=== PATIENT | male | born 1960 | race Caucasian/White ===

== ENCOUNTER 2016-09-17 23:21 | Emergency (ER) | payer MEDICAID ==
[2016-09-17] MEDS ORDERED: oxyCOD/ACETAMIN 5 MG/325 MG TABLET PO STA (23:33)
[2016-09-17] MEDS ORDERED: oxyCOD/ACETAMIN 5 MG/325 MG TABLET PO ONE (23:36)
[2016-09-17] MEDS ORDERED: LIDOCAINE 1%-EPI 1:100000 20 ML MDV ONE (23:58)
== END 2016-09-18 01:48 | disposition home or self-care (01) ==
DX: S62.320A Displaced fracture of shaft of second metacarpal bone, right hand, initial encounter for closed fracture (principal); S06.9X9A Unspecified intracranial injury with loss of consciousness of unspecified duration, initial encounter; S01.81XA Laceration without foreign body of other part of head, initial encounter; S00.83XA Contusion of other part of head, initial encounter; M54.2 Cervicalgia; V48.0XXA Car driver injured in noncollision transport accident in nontraffic accident, initial encounter; Y92.410 Unspecified street and highway as the place of occurrence of the external cause; M06.9 Rheumatoid arthritis, unspecified; Z87.891 Personal history of nicotine dependence
CPT/HCPCS: 12011; 29125; 70450; 72125; 73130; 99283; 99284; A9270

== ENCOUNTER 2016-10-07 10:11 | Outpatient (CLI) | payer MEDICAID | END 2016-10-07 10:12 | disposition home or self-care (01) | DX: S62.320D Displaced fracture of shaft of second metacarpal bone, right hand, subsequent encounter for fracture with routine healing (principal) ==

== ENCOUNTER 2017-01-06 14:03 | Outpatient (CLI) | payer MEDICAID | END 2017-01-06 14:04 | disposition critical access hospital (66) | LOC: EMS 14:03 | PROVIDERS: ATTEND Surgery | DX: F41.9 Anxiety disorder, unspecified (principal) | CPT/HCPCS: A0425; A0429 ==

== ENCOUNTER 2017-01-06 14:45 | Emergency (ER) | payer MEDICAID ==
[2017-01-06 14:49] VITALS: BP 160/94
--- NOTE | 2017-01-06 14:53 | ED Physician Documentation ---
PD HPI DYSPNEA - Stated complaint Stated Complaint: SOA - Chief complaint Chief Complaint: Resp - History obtained from History obtained from: Patient, EMS - History of Present Illness Timing - onset: Enter time (1030), Today Timing - onset during: Rest Timing - duration: Hours Timing - details: Gradual onset, Still present Inciting event(s): Other (56 y/o male with a replapse admits to doing meth last night and this morning he is feeling short of breath and anxious.l) Improved by: Rest Similar symptoms before: Has not had sx before Recently seen: Not recently seen - Additional information Additional information: 56 y/o male with a history of substance abuse has been in remission for 16 years and he has started back up again about 6 months ago and early this morning he became anxious and has resolved to stop. He indicates he was wanting more and resisted it and has flushed his supply and wants to move on. He felt he was going to this morning and he called 911. Review of Systems Constitutional: denies: Fever Eyes: denies: Loss of vision Ears: denies: Ear pain Nose: denies: Congestion Throat: denies: Sore throat Cardiac: denies: Chest pain / pressure, Palpitations Respiratory: reports: Dyspnea. denies: Cough, Wheezing GI: denies: Abdominal Pain, Abdominal Swelling, Nausea, Vomiting : denies: Frequency Skin: denies: Rash Musculoskeletal: denies: Neck pain, Back pain, Extremity pain Neurologic: denies: Generalized weakness, Focal weakness, Numbness Psychiatric: reports: Anxiety PD PAST MEDICAL HISTORY - Past Medical History Neuro: None GI: Hepatitis Musculoskeletal: Rheumatoid arthritis - Past Surgical History Past Surgical History: Yes Ortho: Knee replacement, Arthroscopic surgery Cardiovascular: Vascular surgery - Present Medications Home Medications: Ambulatory Orders Medication Instructions Recorded Confirmed Sulindac 200 mg PO Q6H PRN 02/21/15 03/02/15 oxyCODONE [Roxicodone] 10 mg PO DAILY 03/02/15 03/02/15 Oxycodone HCl 5 mg PO Q6HR PRN #10 tablet 09/18/16 Oxycodone HCl/Acetaminophen 1 - 2 each PO Q6H PRN #10 tablet 09/18/16 [Percocet 5-325 mg Tablet] Lorazepam [Ativan] 1 mg PO Q6HR PRN #20 tablet 01/06/17 - Allergies Allergies/Adverse Reactions: Allergies Allergy/AdvReac Type Severity Reaction Status Date / Time acetaminophen [From Tylenol] AdvReac Unknown Verified 03/02/15 17:35 - Social History Does the pt smoke?: No Smoking Status: Former smoker Does the pt drink ETOH?: No Does the pt have substance abuse?: No - Immunizations Immunizations are current?: Yes - POLST Patient has POLST: No PD ED PE NORMAL - Vitals Vital signs reviewed: Yes (hypertensive ) - General General: Alert and oriented X 3, No acute distress, Well developed/nourished - HEENT HEENT: Atraumatic, PERRL, EOMI - Neck Neck: Supple, no meningeal sign, No bony TTP - Cardiac Cardiac: RRR, No murmur, No gallop - Respiratory Respiratory: No respiratory distress, Clear bilaterally - Abdomen Abdomen: Soft, Non tender - Back Back: No CVA TTP, No spinal TTP - Derm Derm: Normal color, Warm and dry, No rash - Extremities Extremities: No deformity, No edema - Neuro Neuro: No motor deficit, No sensory deficit - Psych Psych: Normal mood, Normal affect Results - Vitals Vitals: Vital Signs - 24 hr 01/06/17 14:46 Temperature 36.8 C Heart Rate 83 Respiratory 17 Rate Blood Pressure 160/94 H O2 Saturation 100 Oxygen O2 Source Room air - EKG (time done) 1503 Rate: Rate (enter#) (70) Rhythm: NSR Douglass: LAD Ischemia: Q waves Compare to prior EKG: Unchanged from prior EKG (01-16-15) Computer interpretation: Agree with computer - Labs Labs: Laboratory Tests 01/06/17 01/06/17 01/06/17 14:51 16:40 16:57 WBC 6.5 RBC 4.52 L Hgb 14.8 Hct 43.0 MCV 95.1 H MCH 32.7 H MCHC 34.4 RDW 11.9 L Plt Count 343 MPV 10.5 Neut # 4.2 Lymph # 1.4 L [place] # 0.8 Eos # 0.1 Baso # 0.1 Absolute Nucleated RBC 0.01 Nucleated RBCs 0.1 Manual Slide Review Indicated WBC Morphology NORMAL APPEARANCE Platelet Estimate NORMAL (130-450,000) Platelet Morphology RARE GIANT PLATELETS RBC Morph Micro Appear 1+ MACROCYTOSIS Sodium 128 L Potassium 3.5 Chloride 93 L Carbon Dioxide 24 Anion Gap 11.0 BUN 9 Creatinine 0.6 Estimated GFR (MDRD) 138 Glucose 99 Calcium 9.6 Total Bilirubin 0.7 AST 106 H ALT 107 H Alkaline Phosphatase 48 Troponin I Total Protein 8.7 H Albumin 4.7 Globulin 4.0 Albumin/Globulin Ratio 1.2 Lipase 25 Urine Color YELLOW Urine Clarity CLEAR Urine pH 7.5 Ur Specific [place] 1.010 Urine Protein NEGATIVE Urine Glucose (UA) NEGATIVE Urine Ketones TRACE Urine Occult Blood NEGATIVE Urine Nitrite NEGATIVE Urine Bilirubin NEGATIVE Urine Urobilinogen 0.2 (NORMAL) Ur Leukocyte Esterase NEGATIVE Ur Microscopic Review NOT INDICATED Urine Culture Comments NOT INDICATED Urine Opiates Screen NEGATIVE Ur Oxycodone Screen NEGATIVE Urine Methadone Screen NEGATIVE Ur Propoxyphene Screen NEGATIVE Ur Barbiturates Screen NEGATIVE Ur Tricyclics Screen NEGATIVE Ur Phencyclidine Scrn NEGATIVE Ur Amphetamine Screen POSITIVE H U Methamphetamines Scrn POSITIVE H U Benzodiazepines Scrn NEGATIVE Urine Cocaine Screen NEGATIVE U Cannabinoids Screen POSITIVE H 01/06/17 16:57 WBC RBC Hgb Hct MCV MCH MCHC RDW Plt Count MPV Neut # Lymph # [place] # Eos # Baso # Absolute Nucleated RBC Nucleated RBCs Manual Slide Review WBC Morphology Platelet Estimate Platelet Morphology RBC Morph Micro Appear Sodium Potassium Chloride Carbon Dioxide Anion Gap BUN Creatinine Estimated GFR (MDRD) Glucose Calcium Total Bilirubin AST ALT Alkaline Phosphatase Troponin I < 0.04 Total Protein Albumin Globulin Albumin/Globulin Ratio Lipase Urine Color Urine Clarity Urine pH Ur Specific [place] Urine Protein Urine Glucose (UA) Urine Ketones Urine Occult Blood Urine Nitrite Urine Bilirubin Urine Urobilinogen Ur Leukocyte Esterase Ur Microscopic Review Urine Culture Comments Urine Opiates Screen Ur Oxycodone Screen Urine Methadone Screen Ur Propoxyphene Screen Ur Barbiturates Screen Ur Tricyclics Screen Ur Phencyclidine Scrn Ur Amphetamine Screen U Methamphetamines Scrn U Benzodiazepines Scrn Urine Cocaine Screen U Cannabinoids Screen PD MEDICAL DECISION MAKING - ED course Complexity details: reviewed old records, reviewed results, re-evaluated patient , considered differential, d/w patient, d/w family ED course: 56 y/o male with a history of substance abuse has started up again and this morning he is anxious. He improves with ativan and social welfare research worker is able to provided resources. Departure - Departure Disposition: 01 Home, Self Care Clinical Impression: Substance abuse, Anxiety about health, Hyponatremia Condition: Stable Instructions: ED Stress React, ED Drug Abuse General, ED Hyponatremia Follow-Up: Angela Lind ARNP [Primary Care Provider] - Prescriptions: Lorazepam [Ativan] 1 mg PO Q6HR PRN #20 tablet PRN Reason: Anxiety
[2017-01-06 15:10] LABS: BILIRUBIN,URINE NEGATIVE (NEGATIVE); PH,URINE 7.5 PH (5.0-7.5)
[2017-01-06 15:13] LABS: UA CHARGE (STRIP ONLY) YES; UR CULTURE IF IND NOT INDICATED
[2017-01-06] MEDS ORDERED: LORazepam 0.5 MG TABLET PO STA (16:19)
[2017-01-06] MEDS ORDERED: LORazepam 0.5 MG TABLET ONE (16:26)
[2017-01-06 16:49] LABS: BASOPHILS # (AUTO) 0.1 10^3/uL (0.0-0.1); BASOPHILS % (AUTO) 1.1 %; EOSINOPHILS # (AUTO) 0.1 10^3/uL (0.0-0.7); EOSINOPHILS % (AUTO) 0.9 %; HGB - HEMOGLOBIN 14.8 g/dL (14.0-18.0); LYMPHOCYTES # (AUTO) 1.4 10^3/uL (1.5-3.5); LYMPHOCYTES % (AUTO) 21.8 %; MEAN CORPUSCULAR HEMOGLOBIN 32.7 pg (27.0-31.0); MEAN CORPUSCULAR HGB CONC 34.4 g/dL (32.0-36.0); MEAN CORPUSCULAR VOLUME 95.1 fL (80.0-94.0); MEAN PLATELET VOLUME 10.5 fL (7.4-11.4); MONOCYTES # (AUTO) 0.8 10^3/uL (0.0-1.0); MONOCYTES % (AUTO) 11.5 %; NEUTROPHILS # (AUTO) 4.2 10^3/uL (1.5-6.6); NEUTROPHILS % (AUTO) 64.7 %; NUCLEATED RED BLOOD CELLS AUTO 0.1 /100WBC; RED BLOOD COUNT 4.52 10^6/uL (4.70-6.10); RED CELL DISTRIBUTION WIDTH 11.9 % (12.0-15.0); UNCORRECTED WHITE BLOOD COUNT 6.5 x10^3/uL; WHITE BLOOD COUNT 6.5 x10^3/uL (4.8-10.8)
[2017-01-06 17:05] LABS: PLATELET ESTIMATE, MANUAL NORMAL (130-450,000) (NORMAL); PLATELET MORPHOLOGY RARE GIANT PLATELETS (NORMAL); WBC MORPHOLOGY (MULTIPLE) NORMAL APPEARANCE (NORMAL)
[2017-01-06 17:17] LABS: ALBUMIN/GLOBULIN RATIO 1.2 (1.0-2.2); BILIRUBIN,TOTAL 0.7 mg/dL (0.2-1.0); CALCIUM 9.6 mg/dL (8.5-10.3); CREATININE 0.6 mg/dL (0.6-1.2); POTASSIUM 3.5 mmol/L (3.5-5.0); TOTAL PROTEIN 8.7 g/dL (6.7-8.2)
== END 2017-01-06 18:06 | disposition home or self-care (01) ==
LOC: EDUNIT# → ED 14:45
DX: F19.10 Other psychoactive substance abuse, uncomplicated (principal); F41.9 Anxiety disorder, unspecified; E87.1 Hypo-osmolality and hyponatremia; M06.9 Rheumatoid arthritis, unspecified; K75.9 Inflammatory liver disease, unspecified; Z87.891 Personal history of nicotine dependence
CPT/HCPCS: 36415; 80053; 80306; 81003; 83690; 84484; 85025; 93005; 99283; 99284; A9270; 81001; 87086

== ENCOUNTER 2017-02-19 13:16 | Emergency (ER) | payer MEDICAID ==
[2017-02-19 13:35] VITALS: BP 112/73
--- NOTE | 2017-02-19 13:55 | ED Physician Documentation ---
PD HPI UPPER EXT INJURY - Stated complaint Stated Complaint: FELL LT ARM PX/SWELLING - Chief complaint Chief Complaint: Ext Problem - History obtained from History obtained from: Patient - History of Present Illness Location: Other ([place] 2 [place] was [place] his elbows yesterday working. Last night the left elbow was very swollen and painful and tender, it is slightly better today.) Review of Systems Constitutional: denies: Fever, Chills GI: reports: Reviewed and negative : reports: Reviewed and negative PD PAST MEDICAL HISTORY - Past Medical History Neuro: None GI: Hepatitis Musculoskeletal: Rheumatoid arthritis - Past Surgical History Past Surgical History: Yes Ortho: Knee replacement, Arthroscopic surgery Cardiovascular: Vascular surgery - Present Medications Home Medications: Ambulatory Orders Medication Instructions Recorded Confirmed Cephalexin [Keflex] 500 mg PO QID #40 capsule 02/19/17 oxyCODONE [Roxicodone] 5 mg PO Q4-6H PRN #7 tablet 02/19/17 - Allergies Allergies/Adverse Reactions: Allergies Allergy/AdvReac Type Severity Reaction Status Date / Time acetaminophen [From Tylenol] AdvReac Unknown Verified 02/19/17 14:12 - Social History Does the pt smoke?: No Smoking Status: Former smoker Does the pt drink ETOH?: No Does the pt have substance abuse?: No - Immunizations Immunizations are current?: Yes - POLST Patient has POLST: No PD ED PE NORMAL - Vitals Vital signs reviewed: Yes - General General: Alert and oriented X 3, No acute distress - Extremities Extremities: Other (He has the appearance of olecranon bursitis with a lot of tenderness over the olecranon and swelling and there is a small wound there, he says his tetanus is up-to-date. There is warmth around the bursa.) - Neuro Neuro: Alert and oriented X 3, Normal speech - Psych Psych: Normal mood, Normal affect Results - Vitals Vitals: Vital Signs - 24 hr 02/19/17 13:33 Temperature 36.4 C L Heart Rate 68 Respiratory 18 Rate Blood Pressure 112/73 O2 Saturation 99 Oxygen O2 Source Room air - Rads (name of study) L elbow Radiology: EMP read contemporaneously (incidental needle in AC fossa and STS, no frx) Procedures - Abscess I&D (location) L olecranon bursa Preparation: Chlorhexadine, Lidocaine 1% Incision: Incised with scalpel, Loculations broken, Culture obtained, Other ( synovial appearing fluid from the bursa) Other: Pt tolerated well, Dressing applied, Antibiotic prescribed PD MEDICAL DECISION MAKING - ED course ED course: He presents with clinical olecranon bursitis, however there was a trauma, x-ray shows no evidence of fracture. I told him about the needle in the antecubital fossa, he says it is probably 20 years old and has not used IV drugs in 17 years or so. The olecranon bursa was incised and drained and packed with quarter inch packing and he is referred to orthopedic clinic for follow-up. Departure - Departure Disposition: 01 Home, Self Care Clinical Impression: Olecranon bursitis of left elbow Condition: Good Record reviewed to determine appropriate education?: Yes Instructions: ED Bursitis Follow-Up: [facility] [Provider Group] Prescriptions: Cephalexin [Keflex] 500 mg PO QID #40 capsule oxyCODONE [Roxicodone] 5 mg PO Q4-6H PRN #7 tablet PRN Reason: Pain Comments: Call today for follow-up in the orthopedics clinic for wound check in 2-3 days. If unable to obtain follow-up in a timely manner return here for wound check in the same timeframe. We are performing a wound culture, the results should be done in 48-72 hours. If antibiotic change is necessary we will call you. Return if worse in the meantime, especially if he develop increased pain, fevers, cannot keep down the medication. Otherwise follow-up with your physician in approximately 2-3 days. [address] not drink or drive while taking narcotic pain medication. Note that many narcotic pain relievers also contain Tylenol/acetaminophen. Please ensure that your total dose of acetaminophen from all sources does not exceed 3 g (3000 mg) per day. You may get constipated while on this medication. Take a stool softener such as Colace twice a day while you are on it. Also add an [id number] laxative such as senna or MiraLAX on any day that you do not have a bowel movement. If you received a narcotic pain medication or sedative while in the emergency department, do not drive for the next 24 hours.
--- NOTE | 2017-02-19 14:23 | XRAY Preliminary Report ---
Exam: XR Elbow 3 View LT IMPRESSION: Marked soft tissue swelling with foreign body, possibly a needle. [facility] SITE ID: [id number]
--- NOTE | 2017-02-19 14:25 | XRAY Report ---
EXAM: LEFT ELBOW RADIOGRAPHY EXAM DATE: 02/19/2017 02:13 PM. CLINICAL HISTORY: ELBOW INJ. COMPARISON: None. TECHNIQUE: 3 views. FINDINGS: Bones: Normal. No fractures or bone lesions. Joints: Joint space is well preserved. Fat pads not distended. Soft Tissues: Marked generalized soft tissue swelling. Linear radiopaque foreign body in soft tissues anterior to the elbow slightly from the anterior edge of the proximal ulnar metaphysis. No definite soft tissue gas. IMPRESSION: Marked soft tissue swelling with foreign body, possibly a needle. [facility] Referring Provider Line: [phone] SITE ID: [id number]
[2017-02-19] MEDS ORDERED: BUFFERED LIDOCAINE 10 ML SYRINGE ONE (14:37)
== END 2017-02-19 15:02 | disposition home or self-care (01) ==
LOC: ED 13:16
DX: M70.22 Olecranon bursitis, left elbow (principal); W10.9XXA Fall (on) (from) unspecified stairs and steps, initial encounter; M06.9 Rheumatoid arthritis, unspecified; Z87.891 Personal history of nicotine dependence
CPT/HCPCS: 23931; 87070; 87077; 87205; 99283

== ENCOUNTER 2017-02-22 13:29 | Emergency (ER) | payer MEDICAID ==
[2017-02-22 13:50] VITALS: BP 122/77
--- NOTE | 2017-02-22 14:01 | ED Physician Documentation ---
PD HPI UPPER EXT INJURY - Stated complaint Stated Complaint: WOUND RE-PACK - Chief complaint Chief Complaint: Wound - History obtained from History obtained from: Patient - History of Present Illness Location: Other (Here couple of days ago for olecranon bursitis of the left elbow, incised and packed. Wound culture grew MSSA. He is generally improving although pain at night has been significant. No fevers.) Review of Systems Constitutional: denies: Fever, Chills Nose: denies: Rhinorrhea / runny nose, Congestion GI: denies: Abdominal Pain, Nausea, Vomiting PD PAST MEDICAL HISTORY - Past Medical History Neuro: None GI: Hepatitis Musculoskeletal: Rheumatoid arthritis - Past Surgical History Past Surgical History: Yes Ortho: Knee replacement, Arthroscopic surgery Cardiovascular: Vascular surgery - Present Medications Home Medications: Ambulatory Orders Medication Instructions Recorded Confirmed Cephalexin [Keflex] 500 mg PO QID #40 capsule 02/19/17 02/22/17 oxyCODONE [Roxicodone] 5 mg PO Q4-6H PRN #7 tablet 02/19/17 02/22/17 - Allergies Allergies/Adverse Reactions: Allergies Allergy/AdvReac Type Severity Reaction Status Date / Time acetaminophen [From Tylenol] AdvReac Unknown Verified 02/22/17 13:50 - Social History Does the pt smoke?: No Smoking Status: Former smoker Does the pt drink ETOH?: No Does the pt have substance abuse?: No - Immunizations Immunizations are current?: Yes - POLST Patient has POLST: No PD ED PE NORMAL - Vitals Vital signs reviewed: Yes - General General: Alert and oriented X 3, No acute distress - Extremities Extremities: Other (Packing in place on the left olecranon bursa is removed and there is minimal residual drainage, there is some surrounding cellulitis but good range of motion of the elbow.) - Neuro Neuro: Alert and oriented X 3, Normal speech - Psych Psych: Normal mood, Normal affect Results - Vitals Vitals: Vital Signs - 24 hr 02/22/17 13:49 Temperature 37.0 C Heart Rate 57 L Respiratory 14 Rate Blood Pressure 122/77 O2 Saturation 97 Oxygen O2 Source Room air PD MEDICAL DECISION MAKING - ED course ED course: Packing was removed and it does not appear to need repacking at this juncture. He was advised on wound care. He was unable to get in with the orthopedics office and he was advised to continue efforts to try to do so especially if not improving. Otherwise he does seem to be improving. Departure - Departure Disposition: 01 Home, Self Care Clinical Impression: Olecranon bursitis of left elbow Condition: Good Record reviewed to determine appropriate education?: Yes Comments: Continue to try to get in with the orthopedist.
== END 2017-02-22 14:01 | disposition home or self-care (01) ==
LOC: ED 13:29
DX: M70.22 Olecranon bursitis, left elbow (principal); K75.9 Inflammatory liver disease, unspecified; M06.9 Rheumatoid arthritis, unspecified; Z87.891 Personal history of nicotine dependence; Z96.659 Presence of unspecified artificial knee joint
CPT/HCPCS: 99282; 99283

== ENCOUNTER 2017-04-28 12:49 | Outpatient (CLI) | payer MEDICAID ==
[~2017-04-28 12:49] MED LIST: IOPAMIDOL-300 100 ML VIAL ONE
[2017-04-28] MEDS ORDERED: IOPAMIDOL-300 100 ML VIAL IVP ONE ×2 (14:34)
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
== END 2017-04-28 12:50 | disposition home or self-care (01) ==
LOC: DI 12:49
PROVIDERS: ATTEND Nurse Practitioner Family
DX: M19.041 Primary osteoarthritis, right hand (principal)
CPT/HCPCS: 73201; Q9967

== ENCOUNTER 2018-04-22 10:23 | Outpatient (CLI) | payer MEDICAID ==
[2018-04-22 17:35] LABS: HB2 TOTAL 13.8 g/dL; HEMOGLOBIN A1C 0.44 g/dL; HEMOGLOBIN A1C % 5.1 % (4.6-6.2)
[2018-04-22 17:56] LABS: BASOPHILS % (AUTO) 0.9 %; EOSINOPHILS # (AUTO) 0.2 10^3/uL (0.0-0.7); EOSINOPHILS % (AUTO) 3.6 %; HGB - HEMOGLOBIN 13.8 g/dL (14.0-18.0); LYMPHOCYTES # (AUTO) 1.4 10^3/uL (1.5-3.5); LYMPHOCYTES % (AUTO) 31.3 %; MEAN CORPUSCULAR HEMOGLOBIN 33.2 pg (27.0-31.0); MEAN CORPUSCULAR HGB CONC 33.9 g/dL (32.0-36.0); MEAN PLATELET VOLUME 11.4 fL (7.4-11.4); MONOCYTES # (AUTO) 0.7 10^3/uL (0.0-1.0); MONOCYTES % (AUTO) 16.7 %; NEUTROPHILS # (AUTO) 2.1 10^3/uL (1.5-6.6); NEUTROPHILS % (AUTO) 47.5 %; PLT - PLATELET COUNT 173 10^3/uL (130-450); RED BLOOD COUNT 4.16 10^6/uL (4.70-6.10); RED CELL DISTRIBUTION WIDTH 12.7 % (12.0-15.0); WHITE BLOOD COUNT 4.4 x10^3/uL (4.8-10.8)
[2018-04-22 18:20] LABS: THYROID STIMULATING HORMONE 3.77 uIU/mL (0.34-5.60)
[2018-04-22 18:22] LABS: FREE T4 (FREE THYROXINE) 0.87 ng/dL (0.58-1.64)
[2018-04-22 18:26] LABS: BILIRUBIN,URINE NEGATIVE (NEGATIVE); GLUCOSE, URINE (UA) NEGATIVE (NEGATIVE); KETONES,URINE (UA) NEGATIVE (NEGATIVE); LEUKOCYTE ESTERASE, URINE NEGATIVE (NEGATIVE); NITRITE,URINE NEGATIVE (NEGATIVE); OCCULT BLOOD,URINE NEGATIVE (NEGATIVE); PH,URINE 7.5 PH (5.0-7.5); PROTEIN,URINE NEGATIVE (NEGATIVE); UROBILINOGEN,URINE 0.2 (NORMAL) E.U./dL (NORMAL)
[2018-04-22 18:33] LABS: CLARITY,URINE CLEAR (CLEAR)
[2018-04-22 18:59] LABS: PLATELET ESTIMATE, MANUAL NORMAL (130-450,000) (NORMAL); PLATELET MORPHOLOGY 1+ LARGE PLATELETS (NORMAL); RBC MORPHOLOGY (MULTIPLE) NORMAL APPEARANCE (NORMAL)
== END 2018-04-22 10:24 | disposition home or self-care (01) ==
LOC: LAB.F 10:23
PROVIDERS: ATTEND Naturopath
DX: S46.011A Strain of muscle(s) and tendon(s) of the rotator cuff of right shoulder, initial encounter (principal); F43.9 Reaction to severe stress, unspecified; Z77.120 Contact with and (suspected) exposure to mold (toxic); R33.9 Retention of urine, unspecified; R39.89 Other symptoms and signs involving the genitourinary system; R63.1 Polydipsia; R53.83 Other fatigue
CPT/HCPCS: 36415; 80053; 80061; 81001; 81003; 83036; 83721; 84153; 84439; 84443; 84481; 85025; 86141; 87086

== ENCOUNTER 2018-04-27 11:35 | Outpatient (CLI) | payer MEDICAID ==
[2018-04-27 17:59] LABS: ALBUMIN 3.6 g/dL (3.2-5.5); ALBUMIN/GLOBULIN RATIO 1.1 (1.0-2.2); ALKALINE PHOSPHATASE 61 IU/L (42-121); ALT ALANINE AMINOTRANSFERASE 93 IU/L (10-60); AST ASPARTATE AMINOTRANSFERASE 90 IU/L (10-42); BILIRUBIN,TOTAL 0.6 mg/dL (0.2-1.0); BUN - BLOOD UREA NITROGEN 9 mg/dL (6-20); CALCIUM 8.8 mg/dL (8.5-10.3); CARBON DIOXIDE - CO2 30 mmol/L (21-32); CHLORIDE 93 mmol/L (101-111); CHOL/HDL RATIO 2.9 (<5.0); CHOLESTEROL 135 mg/dL; CREATININE 0.6 mg/dL (0.6-1.2); GFR - MDRD 138 (>89); GLUCOSE 84 mg/dL (70-100); HDL CHOLESTEROL 47 mg/dL; LDL CHOLESTEROL,CALCULATED 79 mg/dL; LDL/HDL RATIO 1.7 (<3.6); SODIUM 130 mmol/L (135-145); TOTAL PROTEIN 6.8 g/dL (6.7-8.2); VLDL CHOLESTEROL 9 mg/dL
[2018-04-27 18:03] LABS: PSA TOTAL 0.201 ng/mL (0.000-2.000)
[2018-04-27 18:05] LABS: CRP HIGH SENSITIVITY < 0.5 mg/L
[2018-04-27 18:07] LABS: FREE T3 3.22 pg/mL (2.5-3.9)
== END 2018-04-27 11:36 | disposition home or self-care (01) ==
LOC: LAB.F 11:35
PROVIDERS: ATTEND Naturopath
DX: S46.011A Strain of muscle(s) and tendon(s) of the rotator cuff of right shoulder, initial encounter (principal); F43.9 Reaction to severe stress, unspecified; Z77.120 Contact with and (suspected) exposure to mold (toxic); R33.9 Retention of urine, unspecified; R39.89 Other symptoms and signs involving the genitourinary system; R63.1 Polydipsia; R53.83 Other fatigue; R18.8 Other ascites; D64.9 Anemia, unspecified
CPT/HCPCS: 36415; 80053; 80061; 83721; 84153; 84154; 84481; 86141

== ENCOUNTER 2018-05-11 10:01 | Outpatient (CLI) | payer MEDICAID ==
[2018-05-11 18:42] LABS: % IRON SATURATION 57 % (20-50); IRON 235 ug/dL (45-182); TOTAL IRON BINDING CAPACITY 413 ug/dL (250-450); TRANSFERRIN 295 mg/dL (180-329)
[2018-05-11 18:43] LABS: FERRITIN 222.2 ng/mL (23.9-336.2)
[2018-05-11 18:47] LABS: FOLATE 12.17 ng/mL (5.90 - >24.8)
[2018-05-12 12:50] LABS: HIV AG/AB 4TH GEN NON-REACTIVE (NON-REACTIVE)
[2018-05-12 13:01] LABS: HEPATITIS C ANTIBODY REACTIVE (NON-REACTIVE)
[2018-05-13 18:56] LABS: HCV RNA QUANT RT PCR 98900 IU/mL (NOT DETECTED)
== END 2018-05-11 10:02 | disposition home or self-care (01) ==
LOC: LAB.F 10:01
PROVIDERS: ATTEND Naturopath
DX: R94.5 Abnormal results of liver function studies (principal); R39.89 Other symptoms and signs involving the genitourinary system; R53.83 Other fatigue; R18.8 Other ascites; D64.9 Anemia, unspecified; D72.819 Decreased white blood cell count, unspecified; R63.4 Abnormal weight loss
CPT/HCPCS: 36415; 82306; 82607; 82728; 82746; 83540; 84466; 86803; 87389; 87902

== ENCOUNTER 2018-10-05 19:36 | Emergency (ER) | payer MEDICAID ==
[2018-10-05 19:48] VITALS: BP 165/96
[2018-10-05] MEDS ORDERED: BUFFERED LIDOCAINE 10 ML SYRINGE SUBQ STA (20:24)
[2018-10-05] MEDS ORDERED: BUFFERED LIDOCAINE 10 ML SYRINGE ONE (20:30)
--- NOTE | 2018-10-05 20:37 | XRAY Report ---
Reason: hand injury, eval for glass Procedure Date: 10/05/2018 Accession Number: [id number] / [id number] Procedure: XR - Hand 3 View RT CPT Code: FULL RESULT: EXAM: RIGHT HAND RADIOGRAPHY EXAM DATE: 10/05/2018 08:08 PM. CLINICAL HISTORY: Hand injury, evaluate for glass. COMPARISON: Hand 3 view rt 09/18/2016 12:13 AM. TECHNIQUE: 3 views. FINDINGS: Bones: No acute fracture. There is an old second metacarpal fracture deformity. Joints: No subluxations. Moderate DIP joint osteoarthritis. Soft Tissues: Normal. No soft tissue swelling. IMPRESSION: 1. No acute bony abnormality or radiopaque foreign body. 2. Osteoarthritis. [facility]
--- NOTE | 2018-10-05 20:46 | ED Physician Documentation ---
PD HPI UPPER EXT INJURY - Stated complaint Stated Complaint: HAND LAC - Chief complaint Chief Complaint: Laceration - History of Present Illness Location: Right, Hand Type of injury: Laceration Timing - onset: Today Timing - details: Abrupt onset Severity Comments: moderate Improved by: Rest Worsened by: Moving Associated symptoms: No: Weakness, Numbness, Tingling, Discolored Contributing factors: No: Anticoagulated Recently seen: Not recently seen Review of Systems Constitutional: denies: Fever Eyes: denies: Loss of vision Ears: denies: Ear pain Nose: denies: Congestion Skin: reports: Laceration (s) Musculoskeletal: denies: Joint pain Neurologic: denies: Generalized weakness PD PAST MEDICAL HISTORY - Past Medical History Past Medical History: Yes Cardiovascular: None Respiratory: None Neuro: None Endocrine/Autoimmune: None GI: Hepatitis : None HEENT: None Psych: None Musculoskeletal: Rheumatoid arthritis Derm: None - Past Surgical History Past Surgical History: Yes Ortho: Knee replacement, Arthroscopic surgery Cardiovascular: Vascular surgery - Allergies Allergies/Adverse Reactions: Allergies Allergy/AdvReac Type Severity Reaction Status Date / Time acetaminophen [From Tylenol] AdvReac Unknown Verified 10/05/18 19:48 - Social History Does the pt smoke?: No Smoking Status: Former smoker Does the pt drink ETOH?: No Does the pt have substance abuse?: No - Immunizations Immunizations are current?: Yes - POLST Patient has POLST: No PD ED PE NORMAL - General General: Alert and oriented X 3, No acute distress - HEENT HEENT: Atraumatic, PERRL, EOMI, Ears normal - Derm Derm: Other (1 cm hand laceration) - Extremities Extremities: No deformity, Normal ROM s pain - Neuro Neuro: Alert and oriented X 3, Normal speech - Psych Psych: Normal mood PD ED PE EXPANDED - Extremities DILSHAD UE/Hands Visual: 1 - laceration (1 cm laceration , No evidence of foreign body, no evidence of tendon injury. No active bleeding) Results - Vitals Vitals: Vital Signs - 24 hr 10/05/18 19:44 Temperature 37.1 C Heart Rate 57 L Respiratory 16 Rate Blood Pressure 165/96 H O2 Saturation 99 Oxygen O2 Source Room air - Rads (name of study) XR hand Radiology: Final report received, See rad report Procedures - Laceration (location) Hand right Wound type: Linear Neurovascular status: Sensory intact, Vascular intact Tendon involvement: Tendon intact. No: Tendon Injury Anesthesia: Lidocaine 1% Wound Preparation: Irrigated copiously NS Skin layer closure: Nylon, Size #-0 - enter number (4), Other (2 horizontal m attress sutures) Other: Patient tolerated well, No complications, Dressing applied, Tetanus UTD PD MEDICAL DECISION MAKING - ED course ED course: No foreign body seen on physical exam or on radiographic imaging. The wound was closed using sutures. I recommended having the sutures removed in 7 days. I di scussed warning signs for infection. I discussed follow-up primary care. I advised returning to the emergency department for any worsening or concerns Departure - Departure Disposition: 01 Home, Self Care Clinical Impression: Hand laceration Qualifiers: Encounter type: initial encounter Foreign body presence: without foreign body Laterality: unspecified laterality Qualified Code(s): S61.419A - Laceration without foreign body of unspecified hand, initial encounter Condition: Good Instructions: ED Laceration All, ED Laceration Hand Follow-Up: Angela Lind ARNP [Primary Care Provider] - Within 1 week (Please have your sutures removed in 7-10 days) Comments: Please return to the emergency department for worsening symptoms or any concerns
[2018-10-05] MEDS ORDERED: BACITRACIN OINT TOP ONE (20:48)
== END 2018-10-05 20:54 | disposition home or self-care (01) ==
LOC: ED 19:36
DX: S61.411A Laceration without foreign body of right hand, initial encounter (principal); Z87.891 Personal history of nicotine dependence; W25.XXXA Contact with sharp glass, initial encounter
CPT/HCPCS: 12001; 73130; 99282; 99283; A9270

== ENCOUNTER 2018-11-08 10:54 | Outpatient (CLI) | payer MEDICAID ==
[2018-11-08] MEDS ORDERED: IOVERSOL 320 50 ML VIAL ONE (11:09)
[2018-11-08] MEDS ORDERED: IOVERSOL 320 100 ML VIAL IVP ONE ×2 (11:09→14:50)
[2018-11-08 11:29] LABS: CREATININE 0.6 mg/dL (0.6-1.2)
[2018-11-08] MEDS ORDERED: IOVERSOL 320 50 ML VIAL PO ONE (14:50)
--- NOTE | 2018-11-08 15:33 | CT Report ---
Reason: WEIGHT LOSS,ABNORMAL LIVER ENZYMES,HEPATITIS C Procedure Date: 11/08/2018 Accession Number: [id number] / [id number] Procedure: CT - Abdomen/Pelvis W CPT Code: FULL RESULT: EXAM: CT ABDOMEN AND PELVIS WITH IV CONTRAST EXAM DATE: 11/08/2018 12:42 PM. CLINICAL HISTORY: Weight loss, abnormal liver enzymes, hepatitis C. COMPARISONS: None. TECHNIQUE: Routine helical CT imaging was performed through the abdomen and pelvis. IV contrast: Isovue 300, 100 mL. Enteric contrast: Yes. Reconstructions: Coronal and sagittal. In accordance with CT protocol optimization, one or more of the following dose reduction techniques were utilized for this exam: automated exposure control, adjustment of mA and/or KV based on patient size, or use of iterative reconstructive technique. FINDINGS: Lung Bases: Unremarkable. Liver: Prominent in size. Gallbladder/Bile Ducts: The extrahepatic biliary ductal system is top normal, up to 6 mm, as is the distal pancreatic duct which measures up to 4 mm on image 20 series 5. Spleen: Normal. Pancreas: The proper pancreas is difficult to visually assess due to absence of intra-abdominal fat, but no definite abnormalities are identified. Adrenal Glands: Normal. Kidneys: Normal. No masses or hydronephrosis. Peritoneal Cavity/Bowel: No definite retroperitoneal lymphadenopathy is identified. There is no bowel obstruction. There is no free fluid or free air. Pelvic Organs: The bladder is markedly distended. Vasculature: No aneurysms or other significant abnormality. Bones: Mild, age-indeterminant, predominately inferior endplate compression fracture of L1, less than 25% loss of height. Other: None. IMPRESSION: Segmental wall thickening of the jejunum, a nonspecific finding which can be seen with enteritis. Infiltrative malignancy such as lymphoma is felt less likely in the absence of accompanying lymphadenopathy. Prominent extrahepatic biliary system without definite pancreatic mass identified. Marked bladder distention. [facility]
== END 2018-11-08 10:55 | disposition home or self-care (01) ==
LOC: DI 10:54
PROVIDERS: ATTEND Physician Assistant
DX: R63.4 Abnormal weight loss (principal); R94.5 Abnormal results of liver function studies; B19.20 Unspecified viral hepatitis C without hepatic coma; N32.89 Other specified disorders of bladder
CPT/HCPCS: 36415; 74177; 82565; Q9967

== ENCOUNTER 2019-07-25 17:23 | Emergency (ER) | payer MEDICAID ==
[2019-07-25 17:44] VITALS: BP 152/87
[2019-07-25] MEDS ORDERED: LIDOCAINE 1%-EPI 1:100000 20 ML MDV SUBQ STA (18:15)
--- NOTE | 2019-07-25 18:16 | ED Physician Documentation ---
PD HPI WOUND RECHECK - Stated complaint Stated Complaint: LT HAND/THUMB LAC - Chief complaint Chief Complaint: Wound - Histroy obtained from History obtained from: Patient (Right-handed gentleman up-to-date on tetanus was working on the yard today and he broke a stick and it stabbed him in the left palm and he has a persistent foreign body sensation.) Review of Systems Constitutional: reports: Reviewed and negative Musculoskeletal: reports: Reviewed and negative Psychiatric: reports: Reviewed and negative PD PAST MEDICAL HISTORY - Past Medical History Cardiovascular: None Respiratory: None Neuro: None Endocrine/Autoimmune: None GI: Hepatitis : None HEENT: None Psych: None Musculoskeletal: Rheumatoid arthritis Derm: None - Past Surgical History Past Surgical History: Yes Ortho: Knee replacement, Arthroscopic surgery Cardiovascular: Vascular surgery - Allergies Allergies/Adverse Reactions: Allergies Allergy/AdvReac Type Severity Reaction Status Date / Time acetaminophen [From Tylenol] AdvReac Unknown Verified 07/25/19 17:40 - Social History Does the pt smoke?: No Smoking Status: Former smoker Does the pt drink ETOH?: No Does the pt have substance abuse?: No - Immunizations Immunizations are current?: Yes - POLST Patient has POLST: No PD ED PE NORMAL - Vitals Vital signs reviewed: Yes - General General: Alert and oriented X 3, No acute distress - Extremities Extremities: Other (There what is what looks like a shallow flap laceration that does not require suturing on the thenar musculature on the palmar side. Does not look like it goes deep on initial evaluation, that said it was incompletely evaluated initially because he needed some anesthetic before more thorough evaluation.) - Neuro Neuro: Alert and oriented X 3, Normal speech Results - Vitals Vitals: Vital Signs - 24 hr 07/25/19 17:41 Temperature 37.4 C Heart Rate 56 L Respiratory 16 Rate Blood Pressure 152/87 H O2 Saturation 100 Oxygen O2 Source Room air Procedures - Laceration (location) L hand Length in cm: 1 Wound type: Other (The hand was prepped with Hibiclens, and then locally infiltrated with lidocaine with epinephrine, I was able to peel the flap back, it was a small flap measuring about a centimeter on each side and just going a little bit down into subcutaneous fat no deeper. There was some foreign material in it which was debrided and then it was thoroughly irrigated and then the flap was tacked down with Dermabond.) Departure - Departure Disposition: 01 Home, Self Care Clinical Impression: Laceration of left hand Qualifiers: Encounter type: initial encounter Foreign body presence: with foreign body Qualified Code(s): S61.422A - Laceration with foreign body of left hand, initial encounter Condition: Good Record reviewed to determine appropriate education?: Yes Instructions: ED Laceration Ext Skin Glue
== END 2019-07-25 18:34 | disposition home or self-care (01) ==
LOC: ED 17:23
DX: S61.422A Laceration with foreign body of left hand, initial encounter (principal); W26.8XXA Contact with other sharp object(s), not elsewhere classified, initial encounter; Y93.H2 Activity, gardening and landscaping; Z87.891 Personal history of nicotine dependence
CPT/HCPCS: 12001; 99281

== ENCOUNTER 2019-08-24 14:26 | Outpatient (CLI) | payer MEDICAID ==
--- NOTE | 2019-08-24 22:41 | XRAY Report ---
Reason: RIB PAIN, LEFT SIDED Procedure Date: 08/24/2019 Accession Number: [id number] / [id number] Procedure: XRS - Chest 2 View X-Ray CPT Code: 47906 Final Report FULL RESULT: EXAM: CHEST RADIOGRAPHY EXAM DATE: 08/24/2019 02:59 PM. CLINICAL HISTORY: RIB PAIN, LEFT SIDED. COMPARISON: SHOULDER 3 VIEW RT 02/16/2018 8:19 AM. TECHNIQUE: 2 views. FINDINGS: Lungs/Pleura: No focal opacities evident. No pleural effusion. No pneumothorax. Normal volumes. Mediastinum: Heart and mediastinal contours are unremarkable. Other: None. IMPRESSION: No acute displaced rib fracture. No pneumothorax. RADIA
== END 2019-08-24 14:27 | disposition home or self-care (01) ==
LOC: DI.S 14:26
PROVIDERS: ATTEND Registered Nurse
DX: R07.81 Pleurodynia (principal)
CPT/HCPCS: 71046

== ENCOUNTER 2019-08-25 09:24 | Outpatient (CLI) | payer MEDICAID ==
[2019-08-25 17:41] LABS: ALBUMIN 4.2 g/dL (3.2-5.5); ALBUMIN/GLOBULIN RATIO 1.2 (1.0-2.2); ALKALINE PHOSPHATASE 58 IU/L (42-121); ALT ALANINE AMINOTRANSFERASE 23 IU/L (10-60); AST ASPARTATE AMINOTRANSFERASE 29 IU/L (10-42); BILIRUBIN,TOTAL 0.7 mg/dL (0.2-1.0); BUN - BLOOD UREA NITROGEN 14 mg/dL (6-20); CARBON DIOXIDE - CO2 27 mmol/L (21-32); CHLORIDE 94 mmol/L (101-111); CHOL/HDL RATIO 2.5 (<5.0); CHOLESTEROL 163 mg/dL; CREATININE 0.6 mg/dL (0.6-1.2); GFR - MDRD 137 (>89); GLUCOSE 108 mg/dL (70-100); HDL CHOLESTEROL 66 mg/dL; LDL CHOLESTEROL,CALCULATED 89 mg/dL; LDL/HDL RATIO 1.3 (<3.6); SODIUM 133 mmol/L (135-145); TOTAL PROTEIN 7.7 g/dL (6.7-8.2); VLDL CHOLESTEROL 8 mg/dL
[2019-08-25 17:48] LABS: BASOPHILS % (AUTO) 0.6 %; EOSINOPHILS # (AUTO) 0.3 10^3/uL (0.0-0.7); EOSINOPHILS % (AUTO) 6.1 %; HGB - HEMOGLOBIN 13.6 g/dL (14.0-18.0); MEAN CORPUSCULAR HEMOGLOBIN 31.3 pg (27.0-31.0); MEAN CORPUSCULAR HGB CONC 33.4 g/dL (32.0-36.0); MEAN CORPUSCULAR VOLUME 93.6 fL (80.0-94.0); MEAN PLATELET VOLUME 12.8 fL (7.4-11.4); MONOCYTES # (AUTO) 0.6 10^3/uL (0.0-1.0); MONOCYTES % (AUTO) 11.1 %; NEUTROPHILS # (AUTO) 2.5 10^3/uL (1.5-6.6); PLT - PLATELET COUNT 204 10^3/uL (130-450); PSA FREE 0.12 ng/mL (0.16-2.81); RED BLOOD COUNT 4.35 10^6/uL (4.70-6.10); RED CELL DISTRIBUTION WIDTH 12.2 % (12.0-15.0); WHITE BLOOD COUNT 5.4 x10^3/uL (4.8-10.8)
[2019-08-25 17:49] LABS: PSA TOTAL 0.4 ng/mL (0.000-2.000)
[2019-08-25 17:53] LABS: HB2 TOTAL 13.2 g/dL; HEMOGLOBIN A1C 0.55 g/dL
== END 2019-08-25 09:25 | disposition home or self-care (01) ==
LOC: LAB.S 09:24
PROVIDERS: ATTEND Registered Nurse
DX: D53.9 Nutritional anemia, unspecified (principal); M06.9 Rheumatoid arthritis, unspecified; B18.2 Chronic viral hepatitis C
CPT/HCPCS: 36415; 80053; 80061; 83036; 83721; 84153; 84154; 84443; 85025

== ENCOUNTER 2019-12-27 10:39 | Outpatient (CLI) | payer MEDICAID | END 2019-12-27 10:40 | disposition home or self-care (01) | LOC: LAB.S 10:39 | PROVIDERS: ATTEND Physician Assistant | DX: B19.20 Unspecified viral hepatitis C without hepatic coma (principal) | CPT/HCPCS: 36415; 87522 ==

== ENCOUNTER 2020-10-25 10:24 | Outpatient (CLI) | payer MEDICAID ==
--- NOTE | 2020-10-25 10:44 | XRAY Report ---
PROCEDURE: Elbow 3 View LT INDICATIONS: LEFT ELBOW JOINT PAIN TECHNIQUE: 3 views of the elbow were acquired. COMPARISON: None FINDINGS: Bones: No fractures or dislocations. No suspicious bony lesions. Soft tissues: No elbow joint effusion. No suspicious soft tissue calcifications. 12 x 1 mm metallic density foreign body noted in the antecubital fossa concerning for broken needle. IMPRESSION: 1. No fracture. No osseous lesion. If there are persistent symptoms or continued clinical concern for pathology, then repeat plain film radiographs (7-10 days) or advanced imaging (CT, MR, bone scan) sh ould be considered for further evaluation. 2. Probable broken metallic needle embedded in antecubital fossa soft tissues. Reviewed by: Kimberly Aguirre MD, PhD on 10/25/2020 10:43 AM PDT Approved by: Kimberly Aguirre MD, PhD on 10/25/2020 10:43 AM PDT Station ID: [id number]
== END 2020-10-25 10:25 | disposition home or self-care (01) ==
LOC: DI.S 10:24
PROVIDERS: ATTEND Physician Assistant Medical
DX: M25.522 Pain in left elbow (principal)

== ENCOUNTER 2021-12-28 08:00 | Outpatient (CLI) | payer MEDICAID ==
--- NOTE | 2021-12-28 12:47 | XRAY Report ---
PROCEDURE: Hand 3 View RT INDICATIONS: CRUSHING INJURY TO RIGHT HAND TECHNIQUE: 3 views of the hand(s) acquired. COMPARISON: 10/05/2018, 10/07/2016 FINDINGS: Bones: No acute fractures or dislocations are seen. There is a remote, healed second metacarpal shaf t fracture. No suspicious bony lesions. Age-appropriate degenerative changes are seen. Soft tissues: No suspicious soft tissue calcifications. IMPRESSION: No acute displaced fractures are seen. There is a remote second metacarpal fracture. If there is focal tenderness (or other strong clinical concern for a fracture that is not seen on thi s plain film study) then please consider a dedicated CT for further evaluation. Reviewed by: Ryan Herndon MD on 12/28/2021 11:45 AM JESS Approved by: Ryan Herndon MD on 12/28/2021 11:45 AM JESS Station ID: [id number]
== END 2021-12-28 23:59 | disposition home or self-care (01) ==
LOC: DI.S 08:00
PROVIDERS: ATTEND Physician Assistant Medical
DX: S67.21XA Crushing injury of right hand, initial encounter (principal); S62.320D Displaced fracture of shaft of second metacarpal bone, right hand, subsequent encounter for fracture with routine healing

== ENCOUNTER 2022-08-03 14:08 | Outpatient (CLI) | payer MEDICAID ==
--- NOTE | 2022-08-03 14:51 | XRAY Report ---
PROCEDURE: Calcaneus RT INDICATIONS: ACHILLES TENDINITIS, RIGHT TECHNIQUE: Two views of the calcaneus were acquired. COMPARISON: None FINDINGS: Bones: No fractures or dislocations. Moderate degenerative changes at the tibiotalar articulation. No suspicious bony lesions. Soft tissues: There is fine linear calcification at the calcaneal insertion site of the Achilles tend on. The tendon has normal radiographic thickness. There is maintenance of the pre-Achilles fat pad. IMPRESSION: 1. There is wispy calcification in the Achilles tendon at the calcaneal insertion consistent with darrius cific tendinopathy. If there is further concern for the integrity of the tendon, ultrasound or dedica octavio MR imaging of the Achilles tendon could be performed. Reviewed by: Edie Horton MD on 08/03/2022 2:49 PM PST Approved by: Edie Horton MD on 08/03/2022 2:49 PM PST Station ID: [id number]
== END 2022-08-03 23:59 | disposition home or self-care (01) ==
LOC: DI.S 14:08
PROVIDERS: ATTEND Physician Assistant Medical
DX: M76.61 Achilles tendinitis, right leg (principal)

== ENCOUNTER 2022-11-11 09:04 | Outpatient (CLI) | payer MEDICAID ==
--- NOTE | 2022-11-11 09:39 | XRAY Report ---
PROCEDURE: Wrist 3 View RT INDICATIONS: SPRAIN OF RIGHT WRIST TECHNIQUE: 3 views of the wrist were acquired. COMPARISON: X-ray right hand, 10/05/2018. FINDINGS: Bones: No fractures or dislocations. No suspicious bony lesions. Mild osteoarthritis at the radio carpal joint, triscaphe joint and first carpometacarpal joint. Soft tissues: No suspicious soft tissue calcifications or masses. Soft tissue swelling. IMPRESSION: 1. No acute osseous abnormality. 2. Mild osteoarthritis. Reviewed by: Merari Rodriguez MD on 11/11/2022 9:38 AM PDT Approved by: Merari Rodriguez MD on 11/11/2022 9:38 AM PDT Station ID: [id number]
== END 2022-11-11 23:59 | disposition home or self-care (01) ==
LOC: DI.S 09:04
PROVIDERS: ATTEND Physician Assistant Medical
DX: S63.8X1A Sprain of other part of right wrist and hand, initial encounter (principal); M19.031 Primary osteoarthritis, right wrist

== ENCOUNTER 2023-05-07 16:33 | Outpatient (CLI) | payer MEDICAID | END 2023-05-07 16:34 | disposition short-term general hospital (02) | LOC: EMS 16:33 | DX: R07.9 Chest pain, unspecified (principal) | CPT/HCPCS: A0425; A0427; A0999 ==

== ENCOUNTER 2023-09-20 08:00 | Outpatient (CLI) | payer MEDICAID ==
--- NOTE | 2023-09-20 14:58 | XRAY Report ---
PROCEDURE: Wrist 3+V RT INDICATIONS: SPRAIN OF RIGHT WRIST TECHNIQUE: 3 views of the wrist were acquired. COMPARISON: 11/11/2022. FINDINGS: Bones: No acute fractures seen. There is widening of the scapholunate interval measuring 6 mm. No pastrana spicious bony lesions. Mild degenerative changes of the radiocarpal, triscaphe and first CMC joints. Soft tissues: No suspicious soft tissue calcifications or masses. Mild chondrocalcinosis of the radi ocarpal joint. IMPRESSION: 1.Widening of scapholunate interval concerning for ligamentous injury. 2.No acute fractures are seen. 3.Mild osteoarthritic changes and chondrocalcinosis. Reviewed by: Deion Rosa MD on 09/20/2023 2:56 PM PST Approved by: Deion Rosa MD on 09/20/2023 2:56 PM PST Station ID: [id number]
== END 2023-09-20 23:59 | disposition home or self-care (01) ==
LOC: DI.S 08:00
PROVIDERS: ATTEND Physician Assistant Medical
DX: M18.11 Unilateral primary osteoarthritis of first carpometacarpal joint, right hand (principal); M19.031 Primary osteoarthritis, right wrist; M11.231 Other chondrocalcinosis, right wrist; M19.041 Primary osteoarthritis, right hand; S63.8X1A Sprain of other part of right wrist and hand, initial encounter